=== PATIENT | female | born 1990 | race Caucasian/White ===

== ENCOUNTER → 2016-04-20 | Outpatient (CLI) | payer OTHER ==
--- NOTE | 2016-04-20 11:21 | CT ---
EXAMINATION TYPE: CT abdomen pelvis wo con DATE OF EXAM: 04/20/2016 8:43 AM COMPARISON: 12/20/2013 HISTORY: 25-year-old female with left flank pain, microscopic hematuria CT DLP: 875.41 mGycm. Automated exposure control for dose reduction was used. TECHNIQUE: Contiguous axial scanning of the abdomen and pelvis without IV contrast. Coronal and sagit ca reconstructions performed. FINDINGS: Heart is normal size without pericardial effusion. Lung bases clear without pleural effusion. Noncontrast appearance of the liver, gallbladder, adrenal glands, and pancreas show no gross abnormal ity. Right kidney shows punctate 2 mm nonobstructive mid pole calculus. Left kidney shows a punctate 1 mm calculus within the upper pole and the second within the lower pole seen on coronal series. A 2.8 cm round hypodense lesion within the medial anterior spleen is unchanged from 2013 suggesting a benign etiology. No hydronephrosis on either side are calcification seen along the course of either ureter. Scattered nonenlarged and mildly enlarged mesenteric lymph nodes measure up to 8 mm in the upper to m id abdomen. No dilated small bowel, free fluid, or free air. Scattered mild stool without pericolonic inflammatory change. Cecum is low lying hanging within the right hemipelvis. Normal appendix. Uterus is visualized. Both ovaries are visualized though the right ovary is not well delineated from adjacent bowel loops and small to moderate cul-de-sac free fluid. Bones: No osseous destructive process. IMPRESSION: 1. Punctate bilateral nonobstructive nephrolithiasis measuring up to 2 mm. 2. No hydronephrosis or suspicious urinary tract calculus seen. 3. Nonenlarged and mildly enlarged mesenteric lymph nodes probably reactive/post inflammatory. Correl ate for possibility of a mesenteric adenitis. 4. Small to moderate pelvic free fluid probably physiologic. The right ovary is not well delineated f rom adjacent bowel and pelvic free fluid. If concern for acute pelvic pathology, ultrasound can be co nsidered.
== END | disposition home or self-care (01) ==
LOC: RADCTMAIN 08:21
PROVIDERS: ATTEND Family Medicine
DX: N20.0 Calculus of kidney (principal); R59.0 Localized enlarged lymph nodes
CPT/HCPCS: 74176

== ENCOUNTER 2016-10-02 19:14 | Emergency (ER) | payer OTHER ==
[2016-10-02 20:10] LABS: Appearance,Urine Clear (Clear); Bacteria,Urine Rare /hpf; Bilirubin,Urine Negative (Negative); Glucose,Urine (UA) Negative (Negative); Ketones,Urine 1+ (Negative); Leukocyte Esterase,Urine Large (Negative); Mucus,Urine Rare /hpf; Nitrite,Urine Negative (Negative); PH, Urine 5.5 (5.0-8.0); Particle Count 2930; Protein,Urine Negative (Negative); RBC,Urine 1 /hpf (0-5); Specific Gravity,Urine 1.014 (1.001-1.035); Squamous Epithelial Cell,Urine 2 /hpf (0-4); UA Billing (MACRO vs. MICRO) MICRO; Urobilinogen,Urine <2.0 mg/dL (<2.0); WBC,Urine 3 /hpf (0-5)
--- NOTE | 2016-10-02 20:35 | ED ---
Abdominal Pain HPI - General Chief Complaint: Abdominal Pain Stated Complaint: Poss Kidney Stones Time Seen by Provider: 10/02/16 19:38 Source: patient, RN notes reviewed Mode of arrival: ambulatory Limitations: no limitations - History of Present Illness Initial Comments: 26-year-old female presents emergency Department chief complaint of back pain. Patient states that she's been having on and off back pain for last few days and going to chiropractor which has been helping. Patient was concerned that she has a history kidney stones went to urgent care today and told she had a UTI though they said she had a trace of blood so they're concerned about possible kidney stone and told to come to the hospital for CAT scan. Patient had multiple prior CAT scans in the past most recently 3 months ago. Patient states that showed multiple small kidney stones. Patient denies any dysuria or hematuria. Denies fever, chills, night sweats. She states pain is worse in her back with. Patient denies any trauma. Denies any abdominal pain denies any nausea vomiting diarrhea constipation. - Related Data Home Medications Medication Instructions Recorded Confirmed Multivitamin [Multivitamins Adult 1 tab PO DAILY 10/02/16 10/02/16 Gummies] Allergies Allergy/AdvReac Type Severity Reaction Status Date / Time No Known Allergies Allergy Verified 10/02/16 19:55 Review of Systems ROS Statement: Those systems with pertinent positive or pertinent negative responses have been documented in the HPI. ROS Other: All systems not noted in ROS Statement are negative. Past Medical History Past Medical History: No Reported History Additional Past Medical History / Comment(s): Kidney Stones x3 History of Any Multi-Drug Resistant Organisms: None Reported Past Surgical History: Section Past Anesthesia/Blood Transfusion Reactions: No Reported Reaction Past Psychological History: Depression Smoking Status: Never smoker Past Alcohol Use History: None Reported Past Drug Use History: None Reported - Past Family History Mother Family Medical History: Thyroid Disorder Additional Family Medical History / Comment(s): hypothyroidism General Exam Limitations: no limitations General appearance: alert, in no apparent distress Respiratory exam: Present: normal lung sounds bilaterally. Absent: respiratory distress, wheezes, rales, rhonchi, stridor Cardiovascular Exam: Present: regular rate, normal rhythm, normal heart sounds. Absent: systolic murmur, diastolic murmur, rubs, gallop, clicks GI/Abdominal exam: Present: soft, normal bowel sounds. Absent: distended, tenderness, guarding, rebound, rigid Back exam: Present: full ROM, tenderness, paraspinal tenderness (Mild tenderness on lower thoracic, lumbar paraspinous of left). Absent: CVA tenderness (R), CVA tenderness (L), vertebral tenderness Neurological exam: Present: alert, oriented X3, CN II-XII intact, reflexes normal. Absent: motor sensory deficit Course Vital Signs 10/02/16 19:34 Temperature 98.2 F Pulse Rate 76 Respiratory 18 Rate Blood Pressure 122/71 O2 Sat by Pulse 96 Oximetry Medical Decision Making - Medical Decision Making 26-year-old female presented emergency department for back pain. Patient's pain is muscle skeletal nature. Patient has no evidence of urinary tract infection. Patient has had improvement with chiropractor. Patient symptoms are worse with movement. Patient has no red flag symptoms. Patient will be advised increased stretching, continue chiropractor as needed and follow-up with primary care physician. Patient agrees to plan. - Lab Data Lab Results 10/02/16 10/02/16 Range/Units 19:50 19:50 Urine Color Yellow Urine Appearance Clear (Clear) Urine pH 5.5 (5.0-8.0) Ur Specific [place] 1.014 (1.001-1.035) Urine Protein Negative (Negative) Urine Glucose (UA) Negative (Negative) Urine Ketones 1+ H (Negative) Urine Blood Negative (Negative) Urine Nitrite Negative (Negative) Urine Bilirubin Negative (Negative) Urine Urobilinogen <2.0 (<2.0) mg/dL Ur Leukocyte Esterase Large H (Negative) Urine RBC 1 (0-5) /hpf Urine WBC 3 (0-5) /hpf Ur Squamous Epith Cells 2 (0-4) /hpf Urine Bacteria Rare H (None) /hpf Urine Mucus Rare H (None) /hpf Urine HCG, Qual Not Detected (Not Detectd) Disposition Clinical Impression: Back pain Disposition: HOME SELF-CARE Condition: Stable Instructions: Back Pain (ED) Additional Instructions: Please return to the Emergency Department if symptoms worsen or any other concerns. Referrals: Jeronimo Astudillo DO [Primary Care Provider] - 1-2 days Time of Disposition: 20:35
[2016-10-02 21:12] VITALS: BP 122/80; PULSE 70; RESP 20; TEMP 97
== END 2016-10-02 21:11 | disposition home or self-care (01) ==
LOC: EC 19:14
DX: M54.9 Dorsalgia, unspecified (principal); Z87.442 Personal history of urinary calculi
CPT/HCPCS: 81001; 81025; 87086; 99284

== ENCOUNTER → 2016-10-11 | Outpatient (CLI) | payer OTHER ==
--- NOTE | 2016-10-11 13:21 | CT ---
EXAMINATION TYPE: CT abdomen pelvis w con DATE OF EXAM: 10/11/2016 HISTORY: LLQ abdominal pain and enlarged pelvic lymph node with left adnexal fullness per order. CT DLP: 1088mGycm Automated Exposure Control for Dose Reduction was Utilized. CONTRAST: CT scan of the abdomen and pelvis is performed with IV Contrast, patient injected with 100 ml mL of O mnipaque 300. COMPARISON: CT abdomen and pelvis April 20, 2016. FINDINGS: LUNG BASES: No significant abnormality is appreciated. LIVER/GB: No significant abnormality is appreciated. PANCREAS: No significant abnormality is seen. SPLEEN: There is thin-walled 2.4 cm simple appearing cyst redemonstrated in spleen on axial image 24 presumed benign and stable. ADRENALS: No significant abnormality is seen. KIDNEYS: No significant abnormality is seen. Possible punctate calculi on prior CT are not clearly se en on contrast enhanced study. BOWEL: Normal contrast and gas-filled appendix is present on images 66 through 70. No bowel obstructi on is seen. Oral contrast extends to the mid left colon. UTERUS/ADNEXA: Uterus is heterogeneous in appearance and anteverted in shape. Endometrium is prominen t with slight divergence towards the fundus suggesting arcuate type uterus. There is small to moderat e amount of free fluid in pelvic cul-de-sac near axial image 71. Left ovary has 2.1 cm rim hyperdense lesion with surrounding prominent vessels, suspect corpus luteal cyst from recent lobulation as last known menstrual period is September 19 per patient LYMPH NODES: No greater than 1cm abdominal or pelvic lymph nodes are appreciated. OSSEOUS STRUCTURES: No significant abnormality is seen. OTHER: No significant additional abnormality is seen. IMPRESSION: No worrisome mass or adenopathy is seen with particular attention to the left pelvis. Non specific findings of uterus/adnexa as detailed above can be correlated with pelvic ultrasound if ann red.
== END ==
LOC: RADCTMAIN 11:46
PROVIDERS: ATTEND Family Medicine
DX: R10.32 Left lower quadrant pain (principal)
CPT/HCPCS: 74177; Q9967

== ENCOUNTER → 2024-09-21 | Outpatient (CLI) | payer BC ==
--- NOTE | 2024-09-21 19:25 | CT ---
EXAMINATION TYPE: CT abdomen pelvis wo/w con DATE OF EXAM: 09/21/2024 6:52 PM COMPARISON: Previous CT abdomen/pelvis study 10/11/2016. CLINICAL INDICATION: Female, 34 years old with history of R10.84 GENERALIZED ABDOMINAL PAIN R10.32 LE FT LOWE; left flank pain x 1 year, hx of renal stones TECHNIQUE: Axial CT abdomen pelvis wo/w con;Sagittal and coronal reformats were created on a [employer] workstation. Contrast used:100 ml mL of Isovue 300 without and with IV Contrast, (none if empty) Oral contrast used: with Oral Contrast (none if empty) CT DLP: 650 mGycm, Automated exposure control for dose reduction was used. FINDINGS: LOWER CHEST: Unremarkable ABDOMEN LIVER: Unremarkable GALLBLADDER AND BILE DUCTS: Unremarkable. PANCREAS: Unremarkable. SPLEEN: Normal size and morphology. Grossly stable hypodense now peripherally calcified cystic lesion measuring approximately 2.4 cm. ADRENAL GLANDS: Unremarkable. KIDNEYS AND URETERS: No evidence of hydronephrosis. Punctate 3 mm noncutting calculus in the inferior left kidney. The ureters are unremarkable. PELVIS BLADDER: No evidence for wall thickening or mass given limitations of exam. REPRODUCTIVE: Unremarkable. ABDOMEN & PELVIS STOMACH AND BOWEL: Stomach and duodenum are unremarkable. No evidence of bowel obstruction. Moderate diffuse colonic stool burden. PERITONEUM/RETROPERITONEUM: No evidence of pneumoperitoneum or free fluid. VASCULATURE: No evidence of aortic aneurysm. MUSCULOSKELETAL: No acute osseous abnormalities LYMPH NODES: No gross evidence for lymphadenopathy. SOFT TISSUE/ABDOMINAL WALL: Unremarkable IMPRESSION: 1. No acute abnormality in abdomen/pelvis. 2. Small 3 mm nonobstructing calculus in the inferior left kidney. 3. Moderate diffuse colonic stool burden suggesting constipation. [facility], , 09/21/2024 7:23 PM
== END | disposition home or self-care (01) ==
LOC: RADCTMAIN 16:33
PROVIDERS: ATTEND Family Medicine
DX: N20.0 Calculus of kidney (principal)
CPT/HCPCS: 74178; Q9967